=== PATIENT | male | born 1975 | race Hispanic/Latino ===

== ENCOUNTER 2018-11-11 19:28 | Inpatient (IN) | payer SELFPAY ==
[2018-11-11] MEDS ORDERED: Lidocaine 2% MPF 10 ML AMP (For Epidural Use) ONE (20:23)
[2018-11-11] MEDS ORDERED: Adacel (T-DAP) 0.5 ML SYRINGE ONE (21:19)
--- NOTE | 2018-11-11 21:24 | PDOC.FPRHP ---
- History of Present Illness Chief Complaint: Puncture wound History of Present Illness: 43 yo egyptian speaking M with PMH of DM and HTN presents with hx of 11 days ago puncturing rt forearm at his worksite ([facility]) with a wet steel han that was dirty. Pt went to clinic in [place] and was given amoxicillin. He developed fever of 100.5 yesterday, and went to [facility] to be seen today as his wound was worsening and becoming more painful. In the ED, he was febrile. He was given clinda, zosyn, and vanc as well as insulin and toradol. LA was 2.9. He was transferred to [facility]. Here he was afebrile. Repeat LA was improved. WBC was 11.7. He was given Tdap vaccine. Bedside sono showed abscess, wound was I&D at bedside, pus was drained - Allergies/Adverse Reactions Allergies Allergy/AdvReac Type Severity Reaction Status Date / Time No Known Drug Allergies Allergy Verified 11/11/18 23:46 - Home Medications Medication Instructions Recorded Confirmed Type metFORMIN [Glucophage] 500 mg PO BID- 11/12/18 11/12/18 History - History PMHx: DM, HTN, HLD PSHx: None FHx: DM in his mother Social: used to smoke cigars, 1/day for 7 years. Denies alcohol or drug use. He moved from [facility] a few years ago. - Review of Systems General: reports: fever/chills, weight/appetite/sleep changes (decreased appetite) Eyes: denies: eye pain, vision changes ENT: denies: nasal congestion, rhinorrhea Respiratory: reports: cough. denies: congestion, shortness of breath Cardiovascular: denies: chest pain, palpitation Gastrointestinal: reports: constipation. denies: nausea, vomiting, diarrhea, abdominal pain, GI bleeding Genitourinary: denies: dysuria, other (dysuria) Skin: reports: rashes, lesions Musculoskeletal: denies: pain, tenderness Neurological: reports: numbness (bilateral feet). denies: weakness Psychological: denies: anxiety, depression - Vital signs BP: [164/101] HR: [88] RR: [20] Tmax: [99.2] Pox: [97]% on [RA] Wt: [85.2 kg] - Physical Exam Constitutional: NAD, awake, alert and oriented HEENT: normocephalic and atraumatic, PERRLA, EOMI, MMM, oropharynx clear Neck: supple, no LAD Heart: RRR, normal S1/S2, no murmurs/rubs/gallops, pulses present, no edema Lungs: CTAB, no respiratory distress, no wheezing, no retractions Abdomen: soft, non-tender, bowel sounds present, no masses/distention Musculoskeletal: normal structure, normal tone, ROM grossly normal Neurological: no focal deficit, CN II-XII intact Skin: good turgor, capillary refill <2 seconds, other (Rt fore arm: erythematous , indurated. Incision draining small amount serosanguinous fluid) Psychiatric: normal mood and affect, good judgment and insight, intact recent and remote memory FMR H&P: Results - Labs Lab results: ESR Westergren 35 mm/hr (Less than 15) 11/11/18 20:51 Lactic Acid 2.0 mmol/L (0.5-2.2) 11/11/18 20:44 C-Reactive Protein 5.31 mg/dL (= or < 0.5) H 11/11/18 20:51 FMR H&P: A/P - Problem List (1) Cellulitis Current Visit: Yes Status: Acute Code(s): L03.90 - CELLULITIS, UNSPECIFIED (2) Abscess Current Visit: Yes Status: Acute Code(s): L02.91 - CUTANEOUS ABSCESS, UNSPECIFIED (3) HTN (hypertension) Current Visit: Yes Status: Chronic Code(s): I10 - ESSENTIAL (PRIMARY) HYPERTENSION (4) HLD (hyperlipidemia) Current Visit: Yes Status: Chronic Code(s): E78.5 - HYPERLIPIDEMIA, UNSPECIFIED (5) DM2 (diabetes mellitus, type 2) Current Visit: Yes Status: Chronic (6) Constipation Current Visit: Yes Status: Acute Code(s): K59.00 - CONSTIPATION, UNSPECIFIED - Plan Cellulitis with Abscess - Rt forearm, I&D at bedside 11/11 drained pus, no culture done. Given Morphine in ED - WBC elevated to 11.7. Afebrile here - Margins marked - Jose hook to decrease swelling - Continue Vanc, Zosyn, Clinda - Blood cx pending ([facility]), no wound culture drawn - s/p 2L fluids - Repeat LA improved - Procal neg - Tylenol/ BETTINA ibuprofen for pain CK mildly elevated - Likely 2/2 decreased PO intake Constipation - BETTINA miralax/colace HTN - Not on home medication, start lisinopril 5 mg daily here, monitor DM2 - Continue metformin BID, SSI HLD - Unknown home medication. Give 80 mg atorvastatin Dispo: admit to medical inpatient, LOS >2 midnights Diet: CC, low sodium DVT ppx: lovenox GI ppx: ranitidine PCP: none Code status: Full code Yobany Trevizo MD PGY-1 FMR H&P: Upper Level - Pertinent history 43 yo HM PMH Uncontrolled DM2 and HTN. Presents with 10 day history of worsening swelling in his right forearm. States started following an accident at work. 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 Was seen in urger care earlier this week and started on Amoxicillin. When pain and swelling worsened, went to [facility] for evaluation. Sent to [facility] for admission and IV antibiotics. ER [facility]: Labs, Van, zosyn, clinda, toradol. ER [facility]: I&D of wound, DTaP vaccine. - Pertinent findings Vitals: BP elevated. 164/101 otherwise WNL GEN: NAD CV: RRR, no murmur Pulm: CTA-B Extremity: marked erythema of posterior right forearm. incision present for I&D with small amount of blood draining. No involvement of hand. Neurovascularly intact. Labs: WBC 11.7. CRP 5.7 - Plan Date/Time: 11/11/182121 I, Igor Gregg MD, have evaluated this patient and agree with findings/plan as outlined by international marketing manager resident. Pertinent changes/additions are listed here. 1. Cellulitis and abscess of right forearm: s/p I&D. Wound not cultured in ER. Will continue Vanc, zosyn, and clinda until clinically improved. Area of erythema marked. Will monitor closely. 2. DM2: SSI. accuchecks, last A1c 14. Will start glyburide 3. HTN: Med rec. needs to be on RADHA or ARB and statin threrapy. 4. Diet: CC 5. PPx: SCD 6. CODE: Full Dispo: inpatient, medical, >[address] Muñiz.
[2018-11-11] MEDS ORDERED: Vancomycin HCl 1.25 GM in Sodium Chloride 0.9% 250 ML 250 ML IVPB SCH (22:30)
[2018-11-11] MEDS ORDERED: Morphine 4 MG/ML VIAL ONE (22:30)
--- NOTE | 2018-11-11 23:05 | PDOC.EVN ---
Event Note - Event Note Event Note: Date/Time: 11/11/18 2301 I personally evaluated the patient and discussed the management with Dr. Juan C Trevizo I agree with the History, Examination, Assessment and Plan documented above with any addition or exceptions noted below - 43 yo male with h/o uncontrolled DM, HTn, HLD presents with right arm pain, redness, swelling. Patient states that he sustained a puncture wound to right forearm 10 days ago while at work. Seen later in week at urgent care after he noticed some redness and was given amoxicillin and IM injection of abx. States that pain swelling continued to worsen and presented to ER today. (+) fever since yesterday. decreased appetite and body aches. PMH/PSH/All/Meds reviewed and agree with resident's documentation. T99.2 P80 RR18 BP146/100 Exam repeated by me and agree with residnet's findings. Labs: WBC=11.7, H/H=16.2/49.3, Zoi=324, Ug=081, K=4.2, Cl= 100, CO2=21, BUN/Cr=17/0.90, Brbp=186, Lactic Acid= 2.9 -> 2.0, CRP=5.31. A/P: 1 ) Right forearm cellulitus with abscess- I&D perfromed in ED by ERMD; no culture obtained. Plan for blood cultures. Continue Van/Zosyn/Clinda. Plan for TDaP if not already given. 2) DM- monitor accuchecks; adjust meds as needed. 3) HTN- continue home meds.
[2018-11-11] MEDS ORDERED: Ondansetron ODT 4 MG TAB PO PRN (23:08)
[2018-11-11] MEDS ORDERED: Dextrose 50% Abboject 50 ML SYRINGE SLOW IVP PRN (23:08)
[2018-11-11] MEDS ORDERED: Dextrose 5% in Water 1,000 ML IV PRN (23:08)
[2018-11-11] MEDS ORDERED: Acetaminophen 325 MG TAB PO PRN (23:08)
[2018-11-11] MEDS ORDERED: Famotidine 20 MG TAB PO SCH (23:15)
[2018-11-11] MEDS ORDERED: metFORMIN 500 MG TAB PO SCH (23:15)
[2018-11-11 23:18] VITALS: BMI 26.1
[2018-11-11] MEDS: Enoxaparin Sodium 40 MG/0.4 ML SYRINGE SC SCH (23:55)
[2018-11-11] MEDS ORDERED: Clindamycin/D5W 900 MG in Premix Bag 1 BAG IVPB SCH (23:59)
[2018-11-11] MEDS ORDERED: Piperacillin/Tazobactam 4.5 GM in Sodium Chloride 0.9% 100 ML IVPB SCH (23:59)
[2018-11-12] MEDS: Enoxaparin Sodium 40 MG/0.4 ML SYRINGE SC SCH ×2 (00:24→09:11)
[2018-11-12] MEDS ORDERED: Piperacillin/Tazobactam 3.375 GM in Sodium Chloride 0.9% 100 ML IVPB SCH ×2 (01:30→06:00)
[2018-11-12] MEDS ORDERED: Piperacillin/Tazobactam 4.5 GM in Sodium Chloride 0.9% 100 ML IVPB SCH (02:00)
[2018-11-12] MEDS ORDERED: Clindamycin/D5W 900 MG in Premix Bag 1 BAG IVPB SCH (02:00)
[2018-11-12] MEDS: Ibuprofen 800 MG TAB PO SCH ×4 (02:34→20:06)
[2018-11-12] MEDS: Clindamycin/D5W 900 MG in Premix Bag 1 BAG IVPB SCH ×3 (03:39→20:06)
--- NOTE | 2018-11-12 06:15 | PDOC.FM ---
- Subjective Subjective: Patient reports 4/10 pain this AM. Denies any fever/chills, N/V/D, chest pain of SOB. Says he feels better than when he first got to the hospital. - Objective MAR Reviewed: Yes Vital Signs & Weight: Vital Signs (12 hours) Temp Pulse Resp BP Pulse Ox 11/12/18 04:00 98.1 F 93 16 130/83 96 11/12/18 00:14 98 11/11/18 23:08 98.2 F 85 18 152/95 H 95 Weight Weight 82.554 kg Result Diagrams: 11/12/18 08:06 11/12/18 08:06 Phys Exam - Physical Examination Constitutional: NAD HEENT: moist MMs Neck: supple, full ROM Respiratory: no wheezing, no rales, no rhonchi, clear to auscultation bilateral Cardiovascular: RRR, no significant murmur Gastrointestinal: soft, positive bowel sounds Musculoskeletal: pulses present, edema present (in right forearm ) mild TTP in R dorsal forearm Neurological: non-focal, moves all 4 limbs Psychiatric: normal affect, A&O x 3 Skin: no rash, cap refill <2 seconds Deviation from normal: ~ 5x3 area of erythema on dorsal R forearm w/ a small punctate opening -: & minimal purulent & bloody discharge; fluctuance & induration noted Dx/Plan (1) Abscess Code(s): L02.91 - CUTANEOUS ABSCESS, UNSPECIFIED Status: Acute (2) Cellulitis Code(s): L03.90 - CELLULITIS, UNSPECIFIED Status: Acute (3) Constipation Code(s): K59.00 - CONSTIPATION, UNSPECIFIED Status: Acute (4) DM2 (diabetes mellitus, type 2) Status: Chronic (5) HLD (hyperlipidemia) Code(s): E78.5 - HYPERLIPIDEMIA, UNSPECIFIED Status: Chronic (6) HTN (hypertension) Code(s): I10 - ESSENTIAL (PRIMARY) HYPERTENSION Status: Chronic - Plan Plan: Cellulitis with Abscess - s/p I&D at bedside on 11/11 that drained pus but no culture done. Given Morphine in ED. - WBC elevated at 11.7 on admission & patient has remained HD stable & afebrile here. Will continue to trend WBC. - Margins marked on admission w/ no erythema progression noted on PE today. - Will continue chantal hook to decrease swelling. - Will continue Vanc, Zosyn, & Clinda pending blood cxs & will attempt to obtain a sample for wound cx today at bedside. - s/p 2L fluids. Will continue w/ PO hydration only as patient tolerating PO well. - Repeat LA improved - Procal neg - Tylenol/ BETTINA ibuprofen for pain/fever. - Will consider a bedside I&D to obtain a culture sample to guide abx therapy. CK mildly elevated - Likely 2/2 decreased PO intake. Will encourage aggressive PO hydration since tolerating PO and HD stable. HTN - Not on home medication, start lisinopril 5 mg daily here & monitor. DM2 - A1c 14.2 on 10/01/18 per chart review. - Continue metformin BID & mild SSI in addition to [facility] long-acting insulin for improved glycemic control, alison. in setting of an acute infection. HLD - Unknown home medication. Give 80 mg atorvastatin Constipation - [facility] miralax/colace. Dispo: admit to medical inpatient, LOS >2 midnights Diet: CC, low sodium DVT ppx: lovenox GI ppx: ranitidine PCP: none Code status: Full code
[2018-11-12 08:39] LABS: #Eosinphils 0.4 thou/uL (0.0-0.7); #Lymphocytes 1.9 thou/uL (1.20-3.40); #Monocytes 0.6 thou/uL (0.11-0.59); #Neutrophils 6.5 thou/uL (1.40-6.50); %Basophils 0.5 % (0.0-1.0); %Eosinophils 3.8 % (0.0-10.0); %Monocytes 6.4 % (0.0-10.0); %Neutrophils 69.3 % (42.0-75.0); Hemoglobin 15.5 g/dL (14.0-18.0); Mean Corpuscular HGB CONC 33.7 g/dL (32.0-36.0); Mean Corpuscular Hemoglobin 30.5 pg (27.0-31.0); Mean Corpuscular Volume 90.4 fL (78.0-98.0); Mean Platelet Volume 7.6 fL (7.4-10.4); Platelet Count 276 thou/uL (130-400); RBC Distribution Width 11.5 % (11.5-14.5); White Blood Cell (WBC) Count 9.5 thou/uL (4.8-10.8)
[2018-11-12 09:00] LABS: Anion Gap 13 mmol/L (10-20); BUN (Urea Nitrogen) 19 mg/dL (8.9-20.6); Calc. Creatinine Clearance 132 mL/min (70-130); Carbon Dioxide 23 mmol/L (22-29); Chloride 103 mmol/L (98-107); Estimated GFR-MDRD Greater than 90; Glucose 205 mg/dL (70-105); Potassium 4.1 mmol/L (3.5-5.1); Sodium 135 mmol/L (136-145)
[2018-11-12] MEDS ORDERED: Polyethylene Glycol 3350 17 GM Packet PO SCH (09:00)
[2018-11-12] MEDS ORDERED: Vancomycin HCl 1.25 GM in Sodium Chloride 0.9% 250 ML 250 ML IVPB SCH (09:00)
[2018-11-12] MEDS: Famotidine 20 MG TAB PO SCH ×2 (09:10→20:05)
[2018-11-12] MEDS: Senokot S 8.6-50 MG TAB PO SCH ×2 (09:10→20:02)
[2018-11-12] MEDS: metFORMIN 500 MG TAB PO SCH ×2 (09:11→16:30)
[2018-11-12] MEDS: Lisinopril 5 MG TAB PO SCH (09:11)
[2018-11-12] MEDS ORDERED: Lidocaine 1% (PF) 30 ML VIAL ONE (10:02)
[2018-11-12] MEDS ORDERED: Insulin Glargine 15 UNITS in Pre-Filled Syringe 1 EACH SC SCH (10:15)
[2018-11-12] MEDS ORDERED: Morphine 4 MG/ML VIAL ONE (11:20)
[2018-11-12] MEDS ORDERED: Morphine 2 MG/ML SYRINGE SLOW IVP SCH (11:30)
--- NOTE | 2018-11-12 11:38 | PRG ---
DATE OF SERVICE: 11/12/2018 SUBJECTIVE: Mr. Garcia came in with an abscess, infection, and cellulitis of his right forearm related to a work injury. This was incision and drainage and he is currently on IV antibiotics as well as a skyhook. Clinically, he has improved. We are asking Wound Care to do further debridement and irrigation of his wound and this is being performed as I speak. In the meantime, we will continue with IV antibiotics as well as skyhook for at least another day or two. We will continue to manage his diabetes as well. Job ID: [id number]
[2018-11-12] MEDS: HumaLOG 300 UNITS/3 ML VIAL SC PRN (16:31)
[2018-11-12] MEDS ORDERED: Polyethylene Glycol 3350 17 GM Packet PO PRN (16:39)
[2018-11-12] MEDS: Atorvastatin Calcium 40 MG TAB PO SCH (20:05)
[2018-11-12] MEDS ORDERED: Atorvastatin Calcium 40 MG TAB PO SCH (21:00)
--- NOTE | 2018-11-12 22:19 | CON ---
DATE OF CONSULTATION: REASON FOR CONSULT: Right arm cellulitis and abscess. HISTORY OF PRESENT ILLNESS: Mr. Garcia is a 43-year-old man with a past history of hypertension and diabetes, who presented to the hospital with a 1-1/2-week history of cellulitis to the right arm. He states that 1-1/2 ago, he was pinched on the right arm by some fletcher metal. He states that the skin was broken and that he doctored the area himself, but by Thursday, the arm was starting to get red and swollen. He states that by the time he came to the hospital yesterday, he was having fevers and there was some pus draining from the arm. He underwent an I and D at the bedside and was given a tetanus vaccine. He states that since then he is feeling better and having less pain in the arm. ALLERGIES: HE HAS NO KNOWN DRUG ALLERGIES. OUTPATIENT MEDICATIONS: Include metformin. The patient has been on atorvastatin, clindamycin, Lovenox, sliding scale insulin, lisinopril, metformin, docusate, and p.r.n. tramadol since admission. He was previously on Zosyn and vancomycin, but this has been discontinued. PAST MEDICAL HISTORY: Diabetes, hypertension, hyperlipidemia, and history of pancreatitis. PAST SURGICAL HISTORY: None. FAMILY HISTORY: Diabetes. SOCIAL HISTORY: The patient states that he used to drink and smoke, but quit doing both 6 or 7 years ago when he was diagnosed with pancreatitis. He denies any illicit drug use. He is Croatian-speaking only. REVIEW OF SYSTEMS: Ten-system review of systems is negative except per HPI. He has normal strength and movement in his hands. PHYSICAL EXAMINATION: VITAL SIGNS: The patient has been afebrile since his admission, heart rate 79, respirations 18, 97% saturated on room air, and blood pressure 123/79. GENERAL: Reveals a healthy-appearing man, in no acute distress. He is not flushed or toxic in appearance. He is not jaundiced or icteric. HEENT: Unremarkable. NECK: Supple without lymphadenopathy or thyroid nodules. HEART: Regular in its rate and rhythm without murmurs, rubs, or gallops. LUNGS: Clear to auscultation bilaterally. ABDOMEN: Soft, nontender, nondistended. EXTREMITIES: Warm and well perfused without significant edema. The right forearm has some mild edema and erythema. He has an I and D site, which is clean without expressible exudate and without any residual fluctuance. NEUROLOGIC: No focal deficits. PSYCHIATRIC: Alert, oriented, and appropriate, using a freelance translator. LABORATORY DATA: White count is 9.5, hematocrit 46, and platelets 276. Electrolytes are unremarkable. Glucoses ranged from 173 to 246. Preliminary cultures show moderate gram-positive cocci in pairs. ASSESSMENT: Right arm cellulitis and abscess. The abscess appears to have been adequately drained. I will follow him with the Wound Care Team. I have recommended continued elevation of his forearm and antibiotics as he has been receiving. Job ID: [id number]
[2018-11-13] MEDS: Ibuprofen 800 MG TAB PO SCH ×4 (03:28→21:47)
[2018-11-13] MEDS: Clindamycin/D5W 900 MG in Premix Bag 1 BAG IVPB SCH (04:27)
--- NOTE | 2018-11-13 06:37 | PDOC.FM ---
- Subjective Subjective: Patient reports that his pain has improved since yesterday. Rates it at a 3/10 on exam. Denies any N/V/D or constipation. Also denies any fever/chills, chest pain, or SOB. - Objective MAR Reviewed: Yes Vital Signs & Weight: Vital Signs (12 hours) Temp Pulse Resp BP Pulse Ox 11/13/18 04:00 98.2 F 75 16 130/84 98 11/12/18 20:00 98 11/12/18 19:00 98.3 F 86 16 117/79 99 Weight Weight 82.554 kg I&O: 11/11/18 11/12/18 11/13/18 06:59 06:59 06:59 Intake Total 720 Output Total 550 Balance 170 Result Diagrams: 11/12/18 08:06 11/13/18 07:11 Phys Exam - Physical Examination Constitutional: NAD HEENT: moist MMs Neck: supple, full ROM Respiratory: no wheezing, no rales, no rhonchi, clear to auscultation bilateral Cardiovascular: RRR, no significant murmur Gastrointestinal: soft, positive bowel sounds improved R forearm edema compared to yesterday Neurological: non-focal, moves all 4 limbs Psychiatric: normal affect, A&O x 3 Skin: no rash, normal turgor, cap refill <2 seconds Deviation from normal: ~3x4 area of erythema and warmth on R forearm; no erythema expansion -: minimal serosanguinous d/c noted on dressing; packing in place Dx/Plan (1) Abscess Code(s): L02.91 - CUTANEOUS ABSCESS, UNSPECIFIED Status: Acute (2) Cellulitis Code(s): L03.90 - CELLULITIS, UNSPECIFIED Status: Acute Qualifiers: Site of cellulitis: extremity Site of cellulitis of extremity: upper extremity Laterality: right Qualified Code(s): L03.113 - Cellulitis of right upper limb (3) Constipation Code(s): K59.00 - CONSTIPATION, UNSPECIFIED Status: Acute (4) DM2 (diabetes mellitus, type 2) Status: Chronic (5) HLD (hyperlipidemia) Code(s): E78.5 - HYPERLIPIDEMIA, UNSPECIFIED Status: Chronic (6) HTN (hypertension) Code(s): I10 - ESSENTIAL (PRIMARY) HYPERTENSION Status: Chronic - Plan Plan: Cellulitis with Abscess - s/p I&D x2, 1 in ER on 11/11 & second one yesterday at bedside w/ culture sample collected. Prelim Cx results show staph aureus. - WBC down to 9.5 yesterday AM. Repeat pending for this AM. Patient has remained HD stable & afebrile here. - Margins marked on admission w/ no erythema progression noted on PE. - Will continue chantal hook to decrease swelling & transition to PO clinda per Gen surg recs. - Will continue w/ PO hydration only as patient tolerating PO well. - Tylenol/ BETTINA ibuprofen & PRN tramadol for pain/fever. CK mildly elevated - Likely 2/2 decreased PO intake. Will encourage aggressive PO hydration since tolerating PO and HD stable. HTN - Will continue lisinopril 5 mg daily here & titrate PRN. DM2 - A1c 14.2 on 10/01/18 per chart review. - Will continue metformin BID & mild SSI in addition to BETTINA lantus for improved glycemic control, alison. in setting of an acute infection. Will increase AM lantus to 18 units since patient required an additional 3 units of SSI yesterday w/ 15U of lantus. HLD - Will continue 80 mg atorvastatin. Constipation, resolved - PRN miralax/colace. Dispo: Will consider transitioning to PO antibiotics today as patient has remained afebrile and leukocytosis has resovled since admission pending abscess culture results. Possible d/c tomorrow on PO abx once sensitivities have resulted. Diet: CC, HH low sodium DVT ppx: lovenox GI ppx: ranitidine PCP: none, will encourage f/u w/ [facility] or PCP within 1 week of d/c to monitor for continued resolution of infection & for DMII control. Code status: Full code Addendum - Attending - Attending Attestation Date/Time: 11/13/18 8488 I personally evaluated the patient and discussed the management with Dr. Sanchez. I agree with the History, Examination, Assessment and Plan documented above with any addition or exceptions noted below. Patient rates pain as 3/10. Will continue clindamycin but we are awaiting final sensitivities. Also increasing basal insulin.
[2018-11-13 07:46] LABS: Anion Gap 14 mmol/L (10-20); BUN (Urea Nitrogen) 18 mg/dL (8.9-20.6); Calc. Creatinine Clearance 136 mL/min (70-130); Calcium 9.4 mg/dL (7.8-10.44); Carbon Dioxide 24 mmol/L (22-29); Chloride 101 mmol/L (98-107); Estimated GFR-MDRD Greater than 90; Glucose 166 mg/dL (70-105); Sodium 135 mmol/L (136-145)
[2018-11-13] MEDS ORDERED: Insulin Glargine 15 UNITS in Pre-Filled Syringe 1 EACH SC SCH (09:00)
[2018-11-13] MEDS ORDERED: Insulin Glargine 18 UNITS in Pre-Filled Syringe 1 EACH SC SCH (09:00)
[2018-11-13] MEDS: metFORMIN 500 MG TAB PO SCH ×2 (09:33→16:00)
[2018-11-13] MEDS: Lisinopril 5 MG TAB PO SCH (09:34)
[2018-11-13] MEDS: Clindamycin 150 MG CAP PO SCH ×3 (09:34→21:47)
[2018-11-13] MEDS: Famotidine 20 MG TAB PO SCH ×2 (09:34→21:47)
[2018-11-13] MEDS: Enoxaparin Sodium 40 MG/0.4 ML SYRINGE SC SCH (09:35)
[2018-11-13] MEDS: Senokot S 8.6-50 MG TAB PO SCH ×2 (09:36→21:47)
[2018-11-13] MEDS: traMADol HCl 50 MG TAB PO PRN (10:09)
[2018-11-13] MEDS: HumaLOG 300 UNITS/3 ML VIAL SC PRN (12:35)
--- NOTE | 2018-11-13 16:15 | PDOC.GSPN ---
Surgery Progress Note: Subj - Subjective Narrative: Patient is feeling better. He feels like his arm is less swollen and he is having less pain. On examination the erythema and swelling to appear to have improved. I did not take down the entire dressing since wound care had already changed to today. She is growing staph aureus from his cultures although sensitivities are still pending. He is afebrile with normal vital signs. I have asked the patient and his nurse to have me called tomorrow for the dressing change when wound care comes by. Surgery Progress Note: Obj - Vital signs Vital signs: Vital Signs - Most Recent Temp Pulse Resp BP Pulse Ox 98.0 F 80 18 119/76 97 11/13/18 08:00 11/13/18 09:34 11/13/18 08:00 11/13/18 09:34 11/13/18 08:00 Surgery Progress Note: Results - Labs Result Diagrams: 11/12/18 08:06 11/13/18 07:11 Lab results: Laboratory Results - last 24 hr 11/13/18 11/13/18 11/13/18 04:58 07:11 11:02 Sodium 135 L Potassium 4.0 Chloride 101 Carbon Dioxide 24 Anion Gap 14 BUN 18 Creatinine 0.82 Estimated GFR (MDRD) Greater than 90 Glucose 166 H POC Glucose 187 H 227 H Calcium 9.4
[2018-11-13] MEDS: Atorvastatin Calcium 40 MG TAB PO SCH (21:47)
[2018-11-14] MEDS: Clindamycin 150 MG CAP PO SCH (04:24)
[2018-11-14] MEDS: Ibuprofen 800 MG TAB PO SCH ×3 (04:24→14:33)
[2018-11-14 07:23] VITALS: BP 132/88; TEMP 97.7
[2018-11-14 08:04] LABS: Anion Gap 13 mmol/L (10-20); BUN (Urea Nitrogen) 19 mg/dL (8.9-20.6); Calc. Creatinine Clearance 124 mL/min (70-130); Calcium 9.3 mg/dL (7.8-10.44); Carbon Dioxide 23 mmol/L (22-29); Chloride 101 mmol/L (98-107); Estimated GFR-MDRD Greater than 90; Glucose 145 mg/dL (70-105); Potassium 3.6 mmol/L (3.5-5.1); Sodium 133 mmol/L (136-145)
[2018-11-14] MEDS ORDERED: Insulin Glargine 20 UNITS in Pre-Filled Syringe 1 EACH SC SCH (09:00)
[2018-11-14] MEDS ORDERED: Sulfameth/Trimethoprim DS 800-160mg TAB PO SCH (09:00)
[2018-11-14] MEDS: Lisinopril 5 MG TAB PO SCH (09:59)
[2018-11-14] MEDS: Famotidine 20 MG TAB PO SCH (10:00)
[2018-11-14] MEDS: traMADol HCl 50 MG TAB PO PRN (10:00)
[2018-11-14] MEDS: metFORMIN 500 MG TAB PO SCH (10:04)
[2018-11-14] MEDS: Senokot S 8.6-50 MG TAB PO SCH (10:05)
[2018-11-14] MEDS: Enoxaparin Sodium 40 MG/0.4 ML SYRINGE SC SCH (10:05)
[2018-11-14] MEDS: HumaLOG 300 UNITS/3 ML VIAL SC PRN (13:01)
--- NOTE | 2018-11-14 21:40 | DIS ---
DATE OF ADMISSION: 11/11/2018 DATE OF DISCHARGE: 11/14/2018 RESIDENT: Chloe Sanchez MD ADMITTING ATTENDING: Rachael Muñiz MD DISCHARGE ATTENDING: Joselyn Rhoades MD CONSULT: General Surgery: Gage Richmond MD PRIMARY DIAGNOSIS: Purulent cellulitis of the right upper extremity. SECONDARY DIAGNOSES: 1. Poorly controlled type 2 diabetes mellitus. 2. Hyperlipidemia. 3. Hypertension. DISCHARGE MEDICATIONS: 1. Acetaminophen 650 mg p.o. q.4 hours p.r.n. for pain. 2. Atorvastatin 80 mg p.o. at bedtime. 3. Ibuprofen 800 mg p.o. every 6 hours p.r.n. for pain. 4. Lantus 20 units SQ q.a.m. 5. Lisinopril 5 mg p.o. daily. 6. Metformin 1000 mg p.o. b.i.d. with meals. 7. Tramadol 50 mg p.o. every 6 hours p.r.n. for pain #14. 8. Bactrim DS one tab p.o. b.i.d. #13. DISCONTINUED MEDICATIONS: Metformin 500 mg p.o. b.i.d. with meals. HOSPITAL COURSE: The patient is a 43-year-old gentleman with past medical history significant for poorly controlled type 2 diabetes mellitus and hypertension who presented to the emergency department with chief complaint of right arm pain secondary to an injury that occurred at work. The patient reported approximately 11 days ago, he punctured his right forearm at a work site with a wet, dirty steel han. He went to an Urgent Care clinic in [place], [place], and was given p.o. amoxicillin, which he completed as directed. However, the day prior to presentation, the patient reported developing fever at home and went to [place] ER for further evaluation. The patient was given IV clindamycin, Zosyn and vancomycin, as well as insulin and Toradol before being transferred to the [facility] for further evaluation. In the [facility] Department, the patient had additional blood work obtained which was significant for white blood cell count of 11.7, ESR of 35, and lactate of 2.9, which later downtrended to 2.0. The patient's blood glucose was also significantly elevated at 381 and his CRP was 5.31. In addition, a Tdap vaccine was administered and a bedside US revealed there was drainable fluid collection present. A bedside I & D was therefore performed and pus was drained; however, no culture was collected. Thus, due to the patient's systemic symptoms and failed outpatient treatment, he was admitted to the medical floor for continued IV antibiotics. The following morning, it was noted that the patient had remained afebrile and hemodynamically stable overnight. However, on physical exam, the wound still appeared to be fluctuant, so a second bedside I and D was performed during which a culture was obtained. The following day after receiving the preliminary culture results for gram-positive cocci in pairs, the patient's antibiotic regimen was deescalated from IV clindamycin, Zosyn, and vancomycin to IV clindamycin only, pending culture susceptibilities. The patient was continued on IV clindamycin for day 2 of hospitalization and by day 3 of hospitalization, he was transitioned to p.o. clindamycin while still awaiting culture susceptibilities. Of note, the patient 's wound cultured at this point in time was positive for Staphylococcus aureus. By the date of discharge, the patient's culture susceptibilities revealed that the patient had been infected with methicillin-resistant Staphylococcus aureus that was susceptible to lindamycin, Bactrim, and doxycycline. The patient was therefore transitioned from p.o. clindamycin to p.o. Bactrim to ensure compliance due to less frequent dosing. Prior to discharge, Wound Care was consulted to instruct the patient on home wound care and it was recommended that the patient follow-up with his primary care physician at [facility] in [place] early next week to ensure continued resolution of his infection. Regarding the patient's poorly-controlled type 2 diabetes mellitus, per chart review, it was noted that the patient's hemoglobin A1c was approximately 14.2 about 1 month prior to admission. He was therefore started on metformin at an increased dose of 1000 mg p.o. b.i.d., as well as scheduled long-acting insulin that was titrated up to 18 units q.a.m. by the date of discharge. The patient was counseled on the importance of diabetes control and prevention of getting more serious infections and endorsed understanding. Close follow-up for diabetes control was also recommended. Regarding the patient's lab abnormalities, his white blood cell count was within normal limits by the date of discharge and his blood glucose level was consistently in the 100s, signaling improved glycemic control. DISPOSITION: Stable. DISCHARGE INSTRUCTIONS: 1. Location: Home. 2. Diet: Consistent carb, heart healthy diet. 3. Activity: Activity as tolerated. No restrictions. 4. Follow-up: The patient was discharged to follow-up with his primary care physician, Dr. Sally Oakes, within 3 days of discharge. The patient was also instructed to follow-up with General Surgery, Dr. Gage Richmond, within 1 week of discharge. Job ID: [id number] [facility]
--- NOTE | 2018-11-15 09:52 | OP ---
DATE OF PROCEDURE: 11/12/2018 PREOPERATIVE DIAGNOSIS: Purulent cellulitis with abscess formation. POSTOPERATIVE DIAGNOSIS: Purulent cellulitis with abscess formation. PROCEDURE: Incision and drainage of abscesses. PERFORMING PHYSICIANS: Chloe Sanchez MD; Pinky Martell MD. SUPERVISING PHYSICIAN: Donaldo Sanderson MD DESCRIPTION OF PROCEDURE: A time-out protocol was performed prior to initiating the procedure. The area was prepped in the usual sterile manner. The site was anesthetized with 1% lidocaine with epinephrine. A linear incision just adjacent to the previous incision site along the local skin lines was made and bloody purulent material was expressed. The abscess was explored thoroughly and sequestered pockets were opened. A culture sample was obtained and sent for isolation. Bleeding was minimal. The wound was then packed with iodoform gauze and dressed in the usual fashion. The patient tolerated the procedure well without complications. Job ID: [id number] [facility]
== END 2018-11-14 14:44 | disposition home or self-care (01) | DRG 603 ==
LOC: ERS 19:28 → OBSVTOIN 20:30 → T4-A 20:30 → 2NO 23:29 → T4-A 23:40
PROVIDERS: ADMIT Family Medicine; ATTEND Family Medicine
PROC: 0H9BXZZ Drainage of Right Upper Arm Skin, External Approach (ICD-10-PCS; principal; 2018-11-12)
DX: L03.113 Cellulitis of right upper limb (principal); L02.413 Cutaneous abscess of right upper limb; I10 Essential (primary) hypertension; E78.5 Hyperlipidemia, unspecified; E11.65 Type 2 diabetes mellitus with hyperglycemia; K59.00 Constipation, unspecified; F17.210 Nicotine dependence, cigarettes, uncomplicated; Z79.4 Long term (current) use of insulin
CPT/HCPCS: 10061; 36415; 36416; 80048; 82550; 83605; 84145; 85025; 85652; 86140; 87070; 87077; 87186; 87205; 90471; 90715; 96374; J1650; J1825; J2001; J2270; J2543; J3370; J3490; J7050

== ENCOUNTER 2019-12-28 17:53 | Inpatient (IN) | payer SELFPAY ==
[2019-12-28] MEDS ORDERED: Morphine 4 MG/ML VIAL SLOW IVP PRN (20:29)
[2019-12-28] MEDS ORDERED: Ondansetron ODT 4 MG TAB SL PRN (20:30)
[2019-12-28] MEDS: Ondansetron PF 4 MG/2 ML Vial IVP PRN (20:48)
[2019-12-28] MEDS: Lactated Ringer's 1,000 ML IV SCH (20:48)
[2019-12-28] MEDS ORDERED: Dextrose 50% Abboject 50 ML SYRINGE SLOW IVP PRN (22:26)
[2019-12-28] MEDS ORDERED: Dextrose 5% in Water 1,000 ML IV PRN (22:26)
[2019-12-28] MEDS ORDERED: Sodium Chloride 0.9% 1,000 ML IV SCH (22:30)
[2019-12-28 22:39] VITALS: BMI 28.5
[2019-12-28] MEDS: Morphine 2 MG/ML SYRINGE SLOW IVP PRN (23:05)
--- NOTE | 2019-12-29 01:25 | HP ---
CHIEF COMPLAINT: Abdominal pain. HISTORY OF PRESENT ILLNESS: This patient is a 44-year-old male with a history of pancreatitis with recurrence. The patient reports his last episode was about 3 years ago. Following that, he has been on some pancreatic supplementation enzymes, although he had discontinued those. Today about 11 o'clock, the patient started experiencing pain which was more in the right abdomen and appeared to be more in the right lower quadrant, although he admittedly has dull epigastric pain that has some radiation to that area. He had associated nausea and some retching, but no actual vomiting. He denies any diarrhea, constipation, or anorexia. Denies any fevers or chills. He is unaware specifically of the source of his pancreatitis, although he was told in the past that it might be related to metformin. REVIEW OF SYSTEMS: All other systems reviewed. All pertinent positives and negatives noted in the history of present illness. All other systems reviewed were negative. PAST MEDICAL HISTORY: Notable for diabetes, hypertension, recurrent pancreatitis, hyperlipidemia. PAST SURGICAL HISTORY: Appendectomy for ruptured appendix, which appears to be an open procedure based on the subumbilical scar. FAMILY HISTORY: Mother had diabetes, hypertension. SOCIAL HISTORY: The patient denies alcohol or tobacco. He did have some history of that previously, but does not describe significant abuse. He is full code and his would be his surrogate decision maker. ALLERGIES: NONE. CURRENT MEDICATIONS: 1. Aspirin 81 mg daily. 2. Atorvastatin 40 mg two p.o. at bedtime. 3. Gabapentin 100 mg three tabs p.o. b.i.d. 4. Glipizide 5 mg 2 tablets b.i.d. 5. Metformin 500 mg 2 tablets b.i.d. 6. Gemfibrozil 600 mg one p.o. daily. 7. MiraLAX 17 g daily. PHYSICAL EXAMINATION: VITAL SIGNS: BP 133/93, pulse 96, respirations 18, temperature 98.3, O2 saturation 98% on room air. GENERAL APPEARANCE: Age-appropriate healthy-appearing male, in no acute distress. He is [place]-speaking only. He was interviewed through position american sign language interpreter. He is awake and alert, pleasant and cooperative. HEENT: PERRL. No OP lesions. Maynard moist mucosa. NECK: Supple and symmetric without lymphadenopathy, JVD, or carotid bruits. HEART: Regular rate and rhythm without murmurs, gallops, or rubs. LUNGS: Clear to auscultation bilaterally with good chest wall expansion and air exchange. ABDOMEN: Soft, nondistended. He does have some mild tenderness to palpation across the upper abdomen and also some in the right lower quadrant, has no guarding and no rebound. No masses are palpable. No hepatosplenomegaly. EXTREMITIES: No cyanosis, clubbing, or edema. His peripheral pulses are slightly diminished, but present. PSYCH: Normal affect and behavior. NEURO: Cranial nerves are cognitively intact. There is no peripheral weakness or focal deficits. LABORATORY DATA: White count 7.3, hemoglobin 16, platelets 189. Sodium 127, potassium 4.0, chloride 92, CO2 is 21, BUN 15, creatinine is 1.17, glucose is 437, calcium 8.9, AST 29, ALT 49, alkaline phosphatase 120. Troponin is less than 0.01. BNP less than 10. Albumin 4, globulin 3.8. Lipase is 1623. Chest x-ray is negative. CT of the abdomen shows some evidence for acute pancreatitis based on inflammatory changes of the head and uncinate process of the pancreas. Duodenitis was also potential consideration. IMPRESSION AND PLAN: 1. Acute pancreatitis, recurrent in a patient with a history of recurrent pancreatitis, etiology is not known. The patient did report that he had some alcohol use in the past but quit one year ago, did not describe any significant alcohol abuse. He has been told in the past, likely related to metformin. We will treat currently with IV fluids, pain medications and keep him n.p.o. other than some ice chips. Will obtain a lipid panel in the morning to see if he has severe hypertriglyceridemia. If negative, some consideration could be given to ultrasound of the gallbladder, although CT scan did not reveal any significant findings there. His liver enzymes and bilirubin appear to be fairly normal. 2. Pseudohyponatremia secondary to hyperglycemia. 3. Severe hyperglycemia and type 2 diabetes. The patient will have sliding scale insulin low dose initially because he will be n.p.o., although his blood sugars are running fairly high right now that may need to be adjusted. Keep him off his p.o. oral hypoglycemic agents for now. 4. History of hyperlipidemia. Again, checking a fasting lipid panel. Resume statin once he is able to take p.o. 5. History of hypertension. We will follow up blood pressures and give p.r.n. if that becomes necessary based on the fact that he will not be getting his p.o. medications. 6. Pain management with p.r.n. IV morphine. Job ID: [id number]
[2019-12-29] MEDS: Lactated Ringer's 1,000 ML IV SCH ×5 (02:25→17:02)
[2019-12-29] MEDS: Ondansetron PF 4 MG/2 ML Vial IVP PRN (02:30)
[2019-12-29] MEDS: Morphine 2 MG/ML SYRINGE SLOW IVP PRN ×2 (02:30→08:20)
[2019-12-29 06:41] LABS: Anion Gap 14 mmol/L (10-20); BUN (Urea Nitrogen) 14 mg/dL (8.9-20.6); Calc. Creatinine Clearance 115 mL/min (70-130); Calcium 8.6 mg/dL (7.8-10.44); Carbon Dioxide 25 mmol/L (22-29); Cardiac Risk 15.1 (Less than 4.5); Chloride 99 mmol/L (98-107); Cholesterol 424 mg/dl (< 200 Desired); Estimated GFR-MDRD 85; Glucose 265 mg/dL (70-105); HDL Cholesterol 28 mg/dL (>60 Neg Risk); Lipase 375 U/L (8-78); Potassium 4.8 mmol/L (3.5-5.1); Sodium 133 mmol/L (136-145)
[2019-12-29 06:49] LABS: Triglycerides 1534 mg/dL (Less than 150)
[2019-12-29] MEDS: Fish Oil 1,000 MG CAP PO SCH (08:20)
[2019-12-29] MEDS: Enoxaparin Sodium 40 MG/0.4 ML SYRINGE SC SCH (08:21)
[2019-12-29] MEDS: Pantoprazole 40 MG VIAL IVP SCH (08:21)
[2019-12-29] MEDS: Fenofibrate 48 MG TAB PO SCH (09:32)
[2019-12-29] MEDS: Insulin Glargine 10 UNITS in Pre-Filled Syringe 1 EACH SC SCH ×2 (09:32→21:47)
[2019-12-29] MEDS: HumaLOG 300 UNITS/3 ML VIAL SC PRN ×2 (11:34→17:03)
--- NOTE | 2019-12-29 13:07 | PDOC.HOSPP ---
- Subjective Encounter Date: 12/29/19 Encounter Time: 11:30 Subjective: abd pain is better, no nausea or vomiting - Objective Vital Signs & Weight: Vital Signs (12 hours) Temp Pulse Resp BP Pulse Ox 12/29/19 08:20 96 12/29/19 07:34 98.7 F 114 H 18 121/73 96 12/29/19 06:00 98.4 F 107 H 18 115/68 97 12/29/19 03:14 96 Weight Weight 182 lb 4.8 oz I&O: 12/28/19 12/29/19 12/30/19 06:59 06:59 06:59 Intake Total 876 Output Total 1600 Balance -724 Result Diagrams: 12/29/19 06:04 Additional Labs: Accuchecks 12/29/19 12/29/19 12/28/19 10:57 01:36 20:17 POC Glucose 223 H 271 H 270 H 12/28/19 18:56 POC Glucose 263 H Hospitalist ROS - Medication Medications: Active Medications Generic Name Dose Route Start Last Admin Trade Name Freq PRN Reason Stop Dose Admin Enoxaparin Sodium 40 mg 12/29/19 09:00 12/29/19 08:21 Lovenox SC 40 mg 0900 BETTINA Administration Fenofibrate 48 mg 12/29/19 09:00 12/29/19 09:32 Tricor PO 48 mg DAILY BETTINA Administration Fish Oil 1,000 mg 12/29/19 09:00 12/29/19 08:20 Fish Oil PO 1,000 mg DAILY BETTINA Administration Insulin Glargine 10 units/ 0.1 mls @ 0 mls/hr 12/29/19 09:00 12/29/19 09:32 Miscellaneous Medication SC 0.1 mls BID BETTINA Administration Lactated Ringer's 1,000 mls @ 200 mls/hr 12/29/19 07:30 12/29/19 11:34 Lactated Ringer's IV 1,000 mls .Q5H BETTINA Administration Insulin Human Lispro 0 units 12/28/19 22:26 12/29/19 11:34 Humalog SC 3 unit .MILD SLIDING SCALE PRN Administration Mild Correctional Scale Morphine Sulfate 2 mg 12/28/19 22:26 12/29/19 08:20 Morphine SLOW IVP 2 mg Q4H PRN Administration Moderate to Severe Pain (6-10) Pantoprazole Sodium 40 mg 12/29/19 09:00 12/29/19 08:21 Protonix IVP 40 mg DAILY BETTINA Administration Sodium Chloride 10 ml 12/28/19 21:00 12/29/19 10:09 Flush - Normal Saline IVF Not Given Q12HR BETTINA - Exam General Appearance: awake alert Eye: PERRL, anicteric sclera ENT: no oropharyngeal lesions, dry oral mucosa Neck: supple, no JVD Heart: RRR, no murmur Respiratory: no wheezes, no rales Gastrointestinal: soft, non-distended, normal bowel sounds, no guarding, no rigidity Extremities: no cyanosis, no edema Neurological: cranial nerve grossly intact, no focal deficits Psychiatric: normal affect, A&O x 3 Hosp A/P (1) Acute pancreatitis Code(s): K85.90 - ACUTE PANCREATITIS WITHOUT NECROSIS OR INFECTION, UNSP Status: Acute Qualifiers: Pancreatitis type: other Acute pancreatitis complication: no infection or necrosis Qualified Code(s): K85.80 - Other acute pancreatitis without necrosis or infection (2) DM2 (diabetes mellitus, type 2) Status: Chronic Qualifiers: Diabetes mellitus intermission coordinator insulin use: without custodial use (3) HLD (hyperlipidemia) Code(s): E78.5 - HYPERLIPIDEMIA, UNSPECIFIED Status: Chronic Qualifiers: Hyperlipidemia type: mixed hyperlipidemia Qualified Code(s): E78.2 - Mixed hyperlipidemia (4) HTN (hypertension) Code(s): I10 - ESSENTIAL (PRIMARY) HYPERTENSION Status: Chronic Qualifiers: Hypertension type: essential hypertension Qualified Code(s): I10 - Essential (primary) hypertension - Plan continue aggressive hydration ac pancreatitis sec to hypertriglyceridemia full liq diet start on tricor, fish oil, crestor will add creon when he starts solid diet hemostable explained all the labs and current plan with citizen of [place] translation
[2019-12-29] MEDS: Acetaminophen 325 MG TAB PO PRN (17:02)
[2019-12-29] MEDS: Rosuvastatin 20 MG TAB PO SCH (21:47)
[2019-12-30] MEDS: Lactated Ringer's 1,000 ML IV SCH ×6 (00:15→20:38)
[2019-12-30 06:40] LABS: #Eosinphils 0.2 thou/uL (0.0-0.7); #Lymphocytes 1.5 thou/uL (1.20-3.40); #Monocytes 0.9 thou/uL (0.11-0.59); #Neutrophils 8.8 thou/uL (1.40-6.50); %Basophils 0.4 % (0.0-1.0); %Eosinophils 1.8 % (0.0-10.0); %Lymphocytes 12.9 % (21.0-51.0); %Monocytes 7.5 % (0.0-10.0); %Neutrophils 77.4 % (42.0-75.0); Hemoglobin 14.9 g/dL (14.0-18.0); Mean Corpuscular HGB CONC 33.7 g/dL (32.0-36.0); Mean Corpuscular Hemoglobin 30.5 pg (27.0-31.0); Mean Corpuscular Volume 90.6 fL (78.0-98.0); Mean Platelet Volume 9.3 fL (7.4-10.4); Platelet Count 172 thou/uL (130-400); RBC Distribution Width 11.9 % (11.5-14.5); Red Blood Cell (RBC) Count 4.87 mill/uL (4.70-6.10); White Blood Cell (WBC) Count 11.4 thou/uL (4.8-10.8)
[2019-12-30 07:01] LABS: ALT (SGPT) 29 U/L (8-55); AST (SGOT) 19 U/L (5-34); Albumin 3.5 g/dL (3.5-5.0); Alkaline Phosphatase 63 U/L (40-110); Anion Gap 12 mmol/L (10-20); BUN (Urea Nitrogen) 8 mg/dL (8.9-20.6); Bilirubin, Total 0.9 mg/dL (0.2-1.2); Calc. Creatinine Clearance 138 mL/min (70-130); Calcium 8.3 mg/dL (7.8-10.44); Carbon Dioxide 26 mmol/L (22-29); Chloride 101 mmol/L (98-107); Estimated GFR-MDRD Greater than 90; Globulin 2.5 g/dL (2.4-3.5); Glucose 189 mg/dL (70-105); Potassium 4.4 mmol/L (3.5-5.1); Sodium 135 mmol/L (136-145)
[2019-12-30] MEDS: Fish Oil 1,000 MG CAP PO SCH (09:21)
[2019-12-30] MEDS: Gabapentin 300 MG CAP PO SCH ×2 (09:21→20:39)
[2019-12-30] MEDS: Pantoprazole 40 MG VIAL IVP SCH (09:21)
[2019-12-30] MEDS: Aspirin Chewable 81 MG TAB PO SCH (09:21)
[2019-12-30] MEDS: Enoxaparin Sodium 40 MG/0.4 ML SYRINGE SC SCH (09:21)
[2019-12-30] MEDS: Insulin Glargine 10 UNITS in Pre-Filled Syringe 1 EACH SC SCH ×2 (09:21→20:39)
[2019-12-30] MEDS: Fenofibrate 48 MG TAB PO SCH (09:21)
--- NOTE | 2019-12-30 10:54 | PDOC.HOSPP ---
- Subjective Encounter Date: 12/30/19 Encounter Time: 07:40 Subjective: has ruq pain but better this am, no nausea is tolerating full liq diet c/o burning urination - Objective Vital Signs & Weight: Vital Signs (12 hours) Temp Pulse Resp BP BP Pulse Ox 12/30/19 07:16 99.3 F 109 H 20 137/83 97 12/30/19 04:00 99.8 F H 110 H 18 132/83 96 12/30/19 00:00 100.2 F H 108 H 18 114/68 96 Weight Weight 182 lb 4.8 oz I&O: 12/29/19 12/30/19 12/31/19 06:59 06:59 06:59 Intake Total 876 3200 Output Total 1600 3600 Balance -724 -400 Result Diagrams: 12/30/19 06:12 12/30/19 06:12 Additional Labs: Accuchecks 12/30/19 12/29/19 12/29/19 04:23 20:07 16:28 POC Glucose 201 H 267 H 214 H 12/29/19 10:57 POC Glucose 223 H Hospitalist ROS - Medication Medications: Active Medications Generic Name Dose Route Start Last Admin Trade Name Freq PRN Reason Stop Dose Admin Acetaminophen 650 mg 12/29/19 16:38 12/29/19 17:02 Tylenol PO 650 mg Q6H PRN Administration fever or mild pain Aspirin 81 mg 12/30/19 09:00 12/30/19 09:21 Aspirin Chewable PO 81 mg DAILY BETTINA Administration Enoxaparin Sodium 40 mg 12/29/19 09:00 12/30/19 09:21 Lovenox SC 40 mg 0900 BETTINA Administration Fenofibrate 48 mg 12/29/19 09:00 12/30/19 09:21 Tricor PO 48 mg DAILY BETTINA Administration Fish Oil 1,000 mg 12/29/19 09:00 12/30/19 09:21 Fish Oil PO 1,000 mg DAILY BETTINA Administration Gabapentin 300 mg 12/30/19 09:00 12/30/19 09:21 Neurontin PO 300 mg BID BETTINA Administration Insulin Glargine 10 units/ 0.1 mls @ 0 mls/hr 12/29/19 09:00 12/30/19 09:21 Miscellaneous Medication SC 0.1 mls BID BETTINA Administration Lactated Ringer's 1,000 mls @ 200 mls/hr 12/29/19 07:30 12/30/19 09:20 Lactated Ringer's IV 1,000 mls .Q5H BETTINA Administration Insulin Human Lispro 0 units 12/28/19 22:26 12/29/19 17:03 Humalog SC 3 unit .MILD SLIDING SCALE PRN Administration Mild Correctional Scale Morphine Sulfate 2 mg 12/28/19 22:26 12/29/19 08:20 Morphine SLOW IVP 2 mg Q4H PRN Administration Moderate to Severe Pain (6-10) Pantoprazole Sodium 40 mg 12/29/19 09:00 12/30/19 09:21 Protonix IVP 40 mg DAILY BETTINA Administration Rosuvastatin Calcium 20 mg 12/29/19 21:00 12/29/19 21:47 Crestor PO 20 mg HS BETTINA Administration Sodium Chloride 10 ml 12/28/19 21:00 12/30/19 09:22 Flush - Normal Saline IVF Not Given Q12HR BETTINA - Exam General Appearance: awake alert Eye: PERRL, anicteric sclera ENT: no oropharyngeal lesions, moist mucosa Neck: supple, no JVD Heart: RRR, no murmur Respiratory: no wheezes, no rales Gastrointestinal: soft, non-distended, normal bowel sounds, no guarding, no rigidity Extremities: no cyanosis, no edema Neurological: cranial nerve grossly intact, no focal deficits Psychiatric: normal affect, A&O x 3 Hosp A/P (1) Acute pancreatitis Code(s): K85.90 - ACUTE PANCREATITIS WITHOUT NECROSIS OR INFECTION, UNSP Status: Acute Qualifiers: Pancreatitis type: other Acute pancreatitis complication: no infection or necrosis Qualified Code(s): K85.80 - Other acute pancreatitis without necrosis or infection (2) DM2 (diabetes mellitus, type 2) Status: Chronic Qualifiers: Diabetes mellitus rn long term care insulin use: without halfway use (3) HLD (hyperlipidemia) Code(s): E78.5 - HYPERLIPIDEMIA, UNSPECIFIED Status: Chronic Qualifiers: Hyperlipidemia type: mixed hyperlipidemia Qualified Code(s): E78.2 - Mixed hyperlipidemia (4) HTN (hypertension) Code(s): I10 - ESSENTIAL (PRIMARY) HYPERTENSION Status: Chronic Qualifiers: Hypertension type: essential hypertension Qualified Code(s): I10 - Essential (primary) hypertension - Plan continue aggressive hydration ac pancreatitis sec to hypertriglyceridemia full liq fat free diet, will adv to fat free solid diet in am dietary consultation usg ruq to r/o cholelithiasis/cholecystitis in view of ruq pain x 3 days which is easing now, LFT's are normal. on tricor, fish oil, crestor will add creon when he starts solid diet in am. hemostable to ambulate in hallway as tolerated
[2019-12-30] MEDS: HumaLOG 300 UNITS/3 ML VIAL SC PRN ×2 (13:00→17:52)
--- NOTE | 2019-12-30 16:48 | ULT ---
ULTRASOUND ABDOMEN LIMITED: (RIGHT UPPER QUADRANT) 12/30/19 HISTORY: 44-year-old male with acute pancreatitis. Evaluate for cholelithiasis as a cause. FINDINGS: Gallbladder: Distended. Normal wall thickness. No pericholecystic fluid. Questionable sludge present. There is a tiny, approximately 0.9 x 0.7 x 0.7 cm echogenic nodule in the body of the gallbladder travon men abutting the gallbladder wall without acoustic shadowing. It is apparently immobile. No other int raluminal echogenic foci are visualized. Common duct: 6 mm. Liver: Diffusely increased echogenicity. Enlarged. Pancreas: Mostly obscured by shadowing from bowel gas. Right kidney: No hydronephrosis. IMPRESSION: 1. Distended gallbladder. 2. Small 9 mm echogenic focus in the gallbladder lumen, favored to be gallbladder polyp rather t shukla gallstone. 3. Hepatic steatosis. 4. Hepatomegaly. GERMANIA [place] POS: JIN
[2019-12-30] MEDS: Rosuvastatin 20 MG TAB PO SCH (20:39)
[2019-12-31] MEDS: Lactated Ringer's 1,000 ML IV SCH ×3 (04:35→13:02)
[2019-12-31] MEDS: Fish Oil 1,000 MG CAP PO SCH (08:17)
[2019-12-31] MEDS: Fenofibrate 48 MG TAB PO SCH (08:17)
[2019-12-31] MEDS: Pantoprazole 40 MG VIAL IVP SCH (08:17)
[2019-12-31] MEDS: Gabapentin 300 MG CAP PO SCH ×2 (08:17→21:28)
[2019-12-31] MEDS: Aspirin Chewable 81 MG TAB PO SCH (08:17)
[2019-12-31] MEDS: Enoxaparin Sodium 40 MG/0.4 ML SYRINGE SC SCH (08:17)
[2019-12-31] MEDS: Insulin Glargine 10 UNITS in Pre-Filled Syringe 1 EACH SC SCH (08:18)
[2019-12-31 09:46] LABS: ALT (SGPT) 27 U/L (8-55); AST (SGOT) 21 U/L (5-34); Albumin 3.4 g/dL (3.5-5.0); Alkaline Phosphatase 60 U/L (40-110); Anion Gap 10 mmol/L (10-20); BUN (Urea Nitrogen) 7 mg/dL (8.9-20.6); Bilirubin, Total 0.6 mg/dL (0.2-1.2); Calc. Creatinine Clearance 141 mL/min (70-130); Calcium 8.8 mg/dL (7.8-10.44); Carbon Dioxide 27 mmol/L (22-29); Chloride 101 mmol/L (98-107); Estimated GFR-MDRD Greater than 90; Globulin 3.2 g/dL (2.4-3.5); Glucose 217 mg/dL (70-105); Protein, Total 6.6 g/dL (6.0-8.3); Sodium 134 mmol/L (136-145)
--- NOTE | 2019-12-31 11:36 | PDOC.HOSPP ---
- Subjective Encounter Date: 12/31/19 Encounter Time: 08:50 Subjective: abd pain is slowly resolving is tolerating liq diet had bm yesterday - Objective Vital Signs & Weight: Vital Signs (12 hours) Temp Pulse Resp BP Pulse Ox 12/31/19 09:23 98 12/31/19 07:33 98.6 F 92 18 128/81 98 Weight Weight 182 lb 4.8 oz I&O: 12/30/19 12/31/19 01/01/20 06:59 06:59 06:59 Intake Total 3200 Output Total 3600 Balance -400 Result Diagrams: 12/30/19 06:12 12/31/19 08:38 Additional Labs: Accuchecks 12/31/19 12/30/19 12/30/19 04:18 19:29 17:12 POC Glucose 159 H 226 H 212 H 12/30/19 11:17 POC Glucose 231 H Hospitalist ROS - Medication Medications: Active Medications Generic Name Dose Route Start Last Admin Trade Name Freq PRN Reason Stop Dose Admin Acetaminophen 650 mg 12/29/19 16:38 12/29/19 17:02 Tylenol PO 650 mg Q6H PRN Administration fever or mild pain Aspirin 81 mg 12/30/19 09:00 12/31/19 08:17 Aspirin Chewable PO 81 mg DAILY BETTINA Administration Enoxaparin Sodium 40 mg 12/29/19 09:00 12/31/19 08:17 Lovenox SC 40 mg 0900 BETTINA Administration Fenofibrate 48 mg 12/29/19 09:00 12/31/19 08:17 Tricor PO 48 mg DAILY BETTINA Administration Fish Oil 1,000 mg 12/29/19 09:00 12/31/19 08:17 Fish Oil PO 1,000 mg DAILY BETTINA Administration Gabapentin 300 mg 12/30/19 09:00 12/31/19 08:17 Neurontin PO 300 mg BID BETTINA Administration Insulin Human Lispro 0 units 12/28/19 22:26 12/30/19 17:52 Humalog SC 3 unit .MILD SLIDING SCALE PRN Administration Mild Correctional Scale Morphine Sulfate 2 mg 12/28/19 22:26 12/29/19 08:20 Morphine SLOW IVP 2 mg Q4H PRN Administration Moderate to Severe Pain (6-10) Pantoprazole Sodium 40 mg 12/29/19 09:00 12/31/19 08:17 Protonix IVP 40 mg DAILY BETTINA Administration Rosuvastatin Calcium 20 mg 12/29/19 21:00 12/30/19 20:39 Crestor PO 20 mg HS BETTINA Administration Sodium Chloride 10 ml 12/28/19 21:00 12/31/19 08:29 Flush - Normal Saline IVF Not Given Q12HR BETTINA - Exam General Appearance: awake alert Eye: PERRL, anicteric sclera ENT: no oropharyngeal lesions, moist mucosa Neck: supple, no JVD Heart: RRR, no murmur Respiratory: no wheezes, no rales Gastrointestinal: soft, non-distended, normal bowel sounds, no guarding, no rigidity Extremities: no cyanosis, no edema Neurological: cranial nerve grossly intact, no focal deficits Psychiatric: normal affect, A&O x 3 Hosp A/P (1) Acute pancreatitis Code(s): K85.90 - ACUTE PANCREATITIS WITHOUT NECROSIS OR INFECTION, UNSP Status: Acute Qualifiers: Pancreatitis type: other Acute pancreatitis complication: no infection or necrosis Qualified Code(s): K85.80 - Other acute pancreatitis without necrosis or infection (2) DM2 (diabetes mellitus, type 2) Status: Chronic Qualifiers: Diabetes mellitus intermediate insulin use: without ad terminal makeup operator use (3) HLD (hyperlipidemia) Code(s): E78.5 - HYPERLIPIDEMIA, UNSPECIFIED Status: Chronic Qualifiers: Hyperlipidemia type: mixed hyperlipidemia Qualified Code(s): E78.2 - Mixed hyperlipidemia (4) HTN (hypertension) Code(s): I10 - ESSENTIAL (PRIMARY) HYPERTENSION Status: Chronic Qualifiers: Hypertension type: essential hypertension Qualified Code(s): I10 - Essential (primary) hypertension - Plan ac pancreatitis sec to hypertriglyceridemia solid fat free diet dietary consultation usg ruq shows no evidence of stones or cholecystitis, LFT's are normal. on tricor, fish oil, crestor, creon, metformin and glipizide. hemostable to ambulate in hallway as tolerated dc plan in am
[2019-12-31] MEDS: Pancrelipase DR 12000 1 CAP PO SCH ×2 (13:15→17:13)
[2019-12-31] MEDS: HumaLOG 300 UNITS/3 ML VIAL SC PRN ×2 (13:16→17:13)
[2019-12-31] MEDS: Rosuvastatin 20 MG TAB PO SCH (21:28)
[2019-12-31] MEDS: metFORMIN 500 MG TAB PO SCH (21:28)
[2019-12-31] MEDS: Acetaminophen 325 MG TAB PO PRN (21:31)
[2020-01-01] MEDS: Lactated Ringer's 1,000 ML IV SCH (05:25)
[2020-01-01] MEDS ORDERED: glipiZIDE 5 MG TAB PO SCH (07:30)
[2020-01-01 07:44] LABS: ALT (SGPT) 31 U/L (8-55); AST (SGOT) 24 U/L (5-34); Albumin 3.7 g/dL (3.5-5.0); Alkaline Phosphatase 62 U/L (40-110); Anion Gap 14 mmol/L (10-20); BUN (Urea Nitrogen) 12 mg/dL (8.9-20.6); Bilirubin, Total 0.5 mg/dL (0.2-1.2); Calc. Creatinine Clearance 140 mL/min (70-130); Calcium 8.6 mg/dL (7.8-10.44); Carbon Dioxide 24 mmol/L (22-29); Chloride 103 mmol/L (98-107); Estimated GFR-MDRD Greater than 90; Globulin 2.8 g/dL (2.4-3.5); Glucose 190 mg/dL (70-105); Protein, Total 6.5 g/dL (6.0-8.3); Sodium 137 mmol/L (136-145)
[2020-01-01] MEDS: Aspirin Chewable 81 MG TAB PO SCH (08:33)
[2020-01-01] MEDS: Enoxaparin Sodium 40 MG/0.4 ML SYRINGE SC SCH (08:33)
[2020-01-01] MEDS: Gabapentin 300 MG CAP PO SCH (08:33)
[2020-01-01] MEDS: Fish Oil 1,000 MG CAP PO SCH (08:33)
[2020-01-01] MEDS: Fenofibrate 48 MG TAB PO SCH (08:33)
[2020-01-01] MEDS: Pancrelipase DR 12000 1 CAP PO SCH (08:33)
[2020-01-01] MEDS: metFORMIN 500 MG TAB PO SCH (08:33)
[2020-01-01] MEDS: Acetaminophen 325 MG TAB PO PRN (08:40)
[2020-01-01 11:25] VITALS: BP 135/92; TEMP 98
--- NOTE | 2020-01-01 15:30 | DIS ---
DATE OF ADMISSION: 12/28/2019 DATE OF DISCHARGE: 01/01/2020 DISCHARGE DISPOSITION: Home. PRIMARY DISCHARGE DIAGNOSES: Acute pancreatitis secondary to hypertriglyceridemia, noncompliance with medication, diabetes mellitus type 2, dyslipidemia, and hypertension. PROCEDURES DONE DURING HOSPITALIZATION: CT of the abdomen and pelvis done on 12/28/2019 showed findings compatible with focal pancreatitis involving head and uncinate process of the pancreas. There is inflammation around the duodenum as well. Chest x-ray showed no acute cardiopulmonary process. Right upper quadrant abdominal ultrasound done showed distended gallbladder. There was suggestion of possible gallbladder polyp. Hepatic steatosis. Hepatomegaly. Common bile duct was 6 mm. H and H of 14 and 44, platelet count 172, MCV is 90. Liver function tests were within normal limits. BUN 12, creatinine 0.7. Total cholesterol 524, triglycerides 1534, HDL 28, lipase was 1623. DISCHARGE MEDICATIONS: 1. Aspirin 81 mg p.o. daily. 2. Gabapentin 300 mg p.o. twice daily. 3. Atorvastatin 80 mg p.o. at bedtime. 4. Tricor 48 mg p.o. daily. 5. Fish oil 1000 mg p.o. daily. 6. Glipizide 5 mg p.o. daily. 7. Glucophage 1000 mg twice daily. 8. Creon 17450 units 1 capsule 3 times daily with meals. 9. Protonix 40 mg daily. ALLERGIES: NO KNOWN DRUG ALLERGIES. DISCHARGE PLAN: The patient to follow up with his primary care physician, Dr. Dietrich in 1 week. BRIEF COURSE DURING HOSPITALIZATION: The patient initially came in with complaints of abdominal pain in the right upper quadrant, radiating to the flanks. His initial workup and clinical exam were consistent with acute pancreatitis. He has had similar episodes about 3 to 4 years back. He was prescribed medications to lower his triglycerides in the past, but the patient has failed to fill his prescriptions. He was initially kept n.p.o., later was placed on full liquids and at the time of discharge, he is on a solid fat-free diet. The patient's diabetes was also uncontrolled. Prior to discharge, his abdominal pain is resolved. He was counseled with regard to medication and dietary compliance. He has otherwise remained hemodynamically stable and will be shortly discharged home. The patient is given ample patient education material regarding hypertriglyceridemia, diabetes mellitus, and dietary manual as well. Please note, I have seen and examined the patient on the day of discharge. Job ID: [id number]
== END 2020-01-01 11:55 | disposition home or self-care (01) | DRG 440 ==
LOC: ERS 17:53 → T4-A 19:07
PROVIDERS: ADMIT Internal Medicine; ATTEND Internal Medicine
DX: K85.80 Other acute pancreatitis without necrosis or infection (principal); E78.1 Pure hyperglyceridemia; E78.5 Hyperlipidemia, unspecified; K86.1 Other chronic pancreatitis; I10 Essential (primary) hypertension; E11.65 Type 2 diabetes mellitus with hyperglycemia; Z91.14 Patient's other noncompliance with medication regimen; Z90.49 Acquired absence of other specified parts of digestive tract; Z79.899 Other long term (current) drug therapy; Z79.82 Long term (current) use of aspirin; Z79.84 Long term (current) use of oral hypoglycemic drugs
CPT/HCPCS: 36415; 36416; 76705; 80048; 80053; 80061; 83690; 85025; 96360; C9113; J1650; J1815; J2270; J2405

== ENCOUNTER 2024-02-23 09:28 | Inpatient (IN) | payer SELFPAY ==
[2024-02-23] MEDS ORDERED: Senokot S 8.6-50 MG TAB PO PRN (10:40)
[2024-02-23] MEDS ORDERED: Ondansetron ODT 4 MG TAB PO PRN (10:40)
[2024-02-23] MEDS ORDERED: Ondansetron PF 4 MG/2 ML Vial IVP PRN (10:40)
[2024-02-23] MEDS ORDERED: Calcium Carbonate 500 MG ChewTAB PO PRN (10:40)
[2024-02-23 10:42] VITALS: BMI 30.5
[2024-02-23] MEDS ORDERED: Dextrose 50% Abboject 50 ML SYRINGE SLOW IVP PRN (10:43)
[2024-02-23] MEDS ORDERED: Glucagon 1 MG/ML KIT IM PRN (10:43)
[2024-02-23] MEDS ORDERED: Dextrose 5% in Water 1,000 ML IV PRN (10:43)
[2024-02-23] MEDS ORDERED: Labetalol HCl 100 MG/20 ML VIAL SLOW IVP PRN (10:47)
[2024-02-23] MEDS: Sodium Chloride 0.9% 1,000 ML IV SCH (11:15)
[2024-02-23] MEDS: Piperacillin/Tazobactam 3.375 GM in Sodium Chloride 0.9% 100 ML IVPB SCH ×2 (11:18→15:27)
[2024-02-23 11:27] LABS: Lactic Acid 2.4 mmol/L (0.5-2.2)
[2024-02-23 11:29] LABS: Anion Gap 15 mmol/L (10-20); BUN (Urea Nitrogen) 16 mg/dL (8.9-20.6); Calc. Creatinine Clearance 128 mL/min (70-130); Calcium 8.6 mg/dL (7.8-10.44); Carbon Dioxide 21 mmol/L (22-29); Chloride 101 mmol/L (98-107); Estimated GFR 106; Glucose 309 mg/dL (70-105); Potassium 4.1 mmol/L (3.5-5.1); Sodium 133 mmol/L (136-145)
[2024-02-23 11:31] LABS: Phosphorus 2.7 mg/dL (2.3-4.7); Triglycerides 1350 mg/dL (Less than 150)
[2024-02-23] MEDS: fentaNYL 50 mcg/mL 1 mL Vial SLOW IVP SCH (11:39)
[2024-02-23] MEDS: HumaLOG 300 UNITS/3 ML VIAL SC PRN (11:40)
[2024-02-23] MEDS: Pantoprazole 40 MG VIAL IVP SCH ×2 (11:40→20:57)
[2024-02-23] MEDS: Folic Acid 1 MG TAB PO SCH (20:53)
[2024-02-23] MEDS: Multivit, Therapeutic 1 TAB PO SCH (20:54)
[2024-02-23] MEDS: Atorvastatin Calcium 40 MG TAB PO SCH (20:54)
[2024-02-23] MEDS: Thiamine 100 MG TAB PO SCH (20:54)
[2024-02-23] MEDS: Heparin 5,000 UNITS/ML VIAL SC SCH (20:56)
[2024-02-23] MEDS: fentaNYL 50 mcg/mL 1 mL Vial SLOW IVP PRN (21:10)
[2024-02-24 04:21] LABS: #Basophils 0.04 10x3/uL (0.0-0.2); %Basophils 0.3 % (0.0-1.0); %Eosinophils 0.8 % (0.0-10.0); %Lymphocytes 16.4 % (21.0-51.0); %Neutrophils 75.1 % (42.0-75.0); Hemoglobin 13.3 g/dL (14.0-18.0); Mean Corpuscular HGB CONC 34.1 g/dL (32.0-36.0); Mean Corpuscular Hemoglobin 29.2 pg (27.0-31.0); Mean Corpuscular Volume 85.5 fL (78.0-98.0); Mean Platelet Volume 10.7 fL (7.4-10.4); Platelet Count 198 10x3/uL (130-400); RBC Distribution Width 13.2 % (11.5-14.5); Red Blood Cell (RBC) Count 4.56 mill/uL (4.70-6.10)
[2024-02-24 04:32] LABS: Lactic Acid 1.1 mmol/L (0.5-2.2)
[2024-02-24 05:05] LABS: ALT (SGPT) 39 U/L (8-55); AST (SGOT) 23 U/L (5-34); Alkaline Phosphatase 52 U/L (40-110); Anion Gap 11 mmol/L (10-20); BUN (Urea Nitrogen) 19 mg/dL (8.9-20.6); Bilirubin, Total 0.8 mg/dL (0.2-1.2); Calc. Creatinine Clearance 149 mL/min (70-130); Calcium 7.7 mg/dL (7.8-10.44); Carbon Dioxide 21 mmol/L (22-29); Chloride 105 mmol/L (98-107); Estimated GFR 111; Glucose 189 mg/dL (70-105); Lipase 107 U/L (8-78); Magnesium 2.1 mg/dL (1.6-2.6); Phosphorus 1.9 mg/dL (2.3-4.7); Potassium 3.5 mmol/L (3.5-5.1); Sodium 133 mmol/L (136-145)
[2024-02-24] MEDS: Fenofibrate 48 MG TAB PO SCH (08:25)
[2024-02-24] MEDS: Pancrelipase DR 12,000 1 CAP PO SCH (08:25)
[2024-02-24] MEDS: Fish Oil 1,000 MG CAP PO SCH (08:26)
[2024-02-24] MEDS: Aspirin Chewable 81 MG TAB PO SCH (08:26)
[2024-02-24] MEDS: Sodium Chloride 0.9% 1,000 ML IV SCH (09:26)
[2024-02-24] MEDS: Insulin Glargine 30 UNITS/0.3 ML VIAL SC SCH (09:54)
[2024-02-24] MEDS: Ketorolac Tromethamine 30 MG (1 mL) VIAL IVP SCH (12:23)
[2024-02-24] MEDS: Gabapentin 300 MG CAP PO SCH (20:39)
[2024-02-25 08:40] LABS: #Basophils 0.04 10x3/uL (0.0-0.2); %Basophils 0.5 % (0.0-1.0); %Eosinophils 2.4 % (0.0-10.0); %Lymphocytes 29.9 % (21.0-51.0); %Monocytes 7.4 % (0.0-10.0); %Neutrophils 59.5 % (42.0-75.0); Hematocrit 39.3 % (42.0-52.0); Hemoglobin 13.2 g/dL (14.0-18.0); Mean Corpuscular HGB CONC 33.6 g/dL (32.0-36.0); Mean Corpuscular Volume 86.4 fL (78.0-98.0); Mean Platelet Volume 10.8 fL (7.4-10.4); Platelet Count 188 10x3/uL (130-400); Red Blood Cell (RBC) Count 4.55 mill/uL (4.70-6.10)
[2024-02-25] MEDS: Insulin Glargine 30 UNITS/0.3 ML VIAL SC SCH (08:53)
[2024-02-25 09:08] LABS: Phosphorus 2.1 mg/dL (2.3-4.7)
[2024-02-25 09:10] LABS: ALT (SGPT) 37 U/L (8-55); AST (SGOT) 30 U/L (5-34); Alkaline Phosphatase 52 U/L (40-110); Anion Gap 14 mmol/L (10-20); BUN (Urea Nitrogen) 10 mg/dL (8.9-20.6); Bilirubin, Total 0.6 mg/dL (0.2-1.2); Calc. Creatinine Clearance 145 mL/min (70-130); Calcium 8.1 mg/dL (7.8-10.44); Carbon Dioxide 19 mmol/L (22-29); Chloride 108 mmol/L (98-107); Estimated GFR 110; Globulin 3.2 g/dL (2.4-3.5); Glucose 160 mg/dL (70-105); Magnesium 1.8 mg/dL (1.6-2.6); Potassium 3.7 mmol/L (3.5-5.1); Protein, Total 6.2 g/dL (6.0-8.3); Sodium 137 mmol/L (136-145)
[2024-02-25 12:26] VITALS: BP 160/82; TEMP 98.5
[2024-02-25] MEDS: Acetaminophen 325 MG TAB PO PRN (12:46)
== END 2024-02-25 15:15 | disposition home or self-care (01) | DRG 440 ==
LOC: T4-A 10:16
PROVIDERS: ADMIT Internal Medicine; ATTEND Family Medicine
DX: K85.90 Acute pancreatitis without necrosis or infection, unspecified (principal); E11.9 Type 2 diabetes mellitus without complications; E78.5 Hyperlipidemia, unspecified; I10 Essential (primary) hypertension; N20.0 Calculus of kidney; Z79.82 Long term (current) use of aspirin; Z79.899 Other long term (current) drug therapy; Z90.49 Acquired absence of other specified parts of digestive tract; Z79.84 Long term (current) use of oral hypoglycemic drugs
CPT/HCPCS: 36415; 36416; 76705; 80053; 83605; 83615; 83690; 83735; 84100; 84478; 85025; C9113; J1644; J1815; J1885; J2543; J3010; J3490; J7050

== ENCOUNTER 2024-04-06 11:57 | Emergency (ER) | payer SELFPAY ==
[~2024-04-06 11:57] MED LIST: Iopamidol-370 76% 500 ML MDV (1 ML CHARGE) ONE
[2024-04-06] MEDS ORDERED: Morphine 4 MG/ML VIAL ONE (12:34)
[2024-04-06] MEDS ORDERED: Ondansetron PF 4 MG/2 ML Vial ONE (12:34)
[2024-04-06] MEDS ORDERED: Famotidine/PF 20 mg/2ml Vial ONE (12:34)
[2024-04-06 12:51] LABS: #Basophils 0.04 10x3/uL (0.0-0.2); %Basophils 0.7 % (0.0-1.0); %Eosinophils 3.4 % (0.0-10.0); %Lymphocytes 41.1 % (21.0-51.0); %Monocytes 7.6 % (0.0-10.0); Hemoglobin 14.1 g/dL (14.0-18.0); Mean Corpuscular HGB CONC 33.6 g/dL (32.0-36.0); Mean Corpuscular Hemoglobin 28.6 pg (27.0-31.0); Mean Corpuscular Volume 85.2 fL (78.0-98.0); Mean Platelet Volume 9.8 fL (7.4-10.4); Platelet Count 224 10x3/uL (130-400); RBC Distribution Width 13.1 % (11.5-14.5); Red Blood Cell (RBC) Count 4.93 mill/uL (4.70-6.10)
[2024-04-06 13:22] LABS: ALT (SGPT) 67 U/L (8-55); AST (SGOT) 46 U/L (5-34); Albumin 3.8 g/dL (3.5-5.0); Alkaline Phosphatase 89 U/L (40-110); Anion Gap 13 mmol/L (10-20); BUN (Urea Nitrogen) 12 mg/dL (8.9-20.6); Bilirubin, Total 0.2 mg/dL (0.2-1.2); Calc. Creatinine Clearance 0 mL/min (70-130); Carbon Dioxide 21 mmol/L (22-29); Chloride 108 mmol/L (98-107); Estimated GFR 106; Globulin 2.9 g/dL (2.4-3.5); Glucose 170 mg/dL (70-105); Lipase 28 U/L (8-78); Potassium 3.9 mmol/L (3.5-5.1); Protein, Total 6.7 g/dL (6.0-8.3); Sodium 138 mmol/L (136-145)
[2024-04-06 15:57] LABS: Bacteria/HPF None Seen HPF (None Seen); Bilirubin Negative (Negative); Blood, Urine Negative (Negative); CAUTI Indications for Culture Dysuria,urgency,freq; Clarity Clear (Clear); Glucose, Urine (Dipstick) 100 mg/dL (Negative); Ketone, Urine Negative (Negative); Leukocyte Negative Leu/uL (Negative); Nitrite Negative (Negative); Protein, Urine (Dipstick) Negative (Neg-Trace); RBC/HPF 0-3 HPF (0-3); Squamous Epithelial None Seen HPF (0-3); Urobilinogen Normal mg/dL (Less than 2); WBC/HPF None Seen HPF (0-3); pH, Urine 5.5 (5.0-9.0)
[2024-04-06 16:03] LABS: Specific Gravity, Urine Greater than 1.060 (1.002-1.036)
[2024-04-06 16:11] LABS: Urine Culture Reflex No No
== END 2024-04-06 16:30 | disposition home or self-care (01) ==
LOC: ERS 11:57
DX: K59.00 Constipation, unspecified (principal); I10 Essential (primary) hypertension; E11.40 Type 2 diabetes mellitus with diabetic neuropathy, unspecified
CPT/HCPCS: 36415; 74177; 80053; 81001; 83690; 85025; 96374; 96375; J2405; Q9967

== ENCOUNTER 2024-06-19 22:26 | Inpatient (IN) | payer SELFPAY ==
[2024-06-20 01:43] VITALS: BMI 29.9
[2024-06-20] MEDS ORDERED: Dextrose 50% Abboject 50 ML SYRINGE SLOW IVP PRN (01:46)
[2024-06-20] MEDS ORDERED: Dextrose 5% in Water 1,000 ML IV PRN (01:46)
[2024-06-20] MEDS ORDERED: Ondansetron ODT 4 MG TAB PO PRN (01:46)
[2024-06-20] MEDS ORDERED: Glucagon 1 MG/ML KIT IM PRN (01:46)
[2024-06-20 02:44] LABS: #Basophils 0.06 10x3/uL (0.0-0.2); %Basophils 0.4 % (0.0-1.0); %Eosinophils 0.7 % (0.0-10.0); %Lymphocytes 13.8 % (21.0-51.0); %Monocytes 5.3 % (0.0-10.0); %Neutrophils 79.4 % (42.0-75.0); Hematocrit 39.2 % (42.0-52.0); Hemoglobin 14.7 g/dL (14.0-18.0); Mean Corpuscular HGB CONC 37.5 g/dL (32.0-36.0); Mean Corpuscular Hemoglobin 31.6 pg (27.0-31.0); Mean Corpuscular Volume 84.3 fL (78.0-98.0); Mean Platelet Volume 10.4 fL (7.4-10.4); Platelet Count 219 10x3/uL (130-400); RBC Distribution Width 13.9 % (11.5-14.5); Red Blood Cell (RBC) Count 4.65 mill/uL (4.70-6.10)
[2024-06-20] MEDS: Morphine 2 MG/ML VIAL SLOW IVP PRN (02:52)
[2024-06-20] MEDS: Insulin Lispro 100 UNIT/ML 10 ML VIAL SC PRN ×2 (02:53→05:11)
[2024-06-20] MEDS: Sodium Bicarbonate 100 MEQ in Sodium Chloride 0.45% 1,000 ML IV SCH (02:54)
[2024-06-20 03:06] LABS: ALT (SGPT) 24 U/L (8-55); AST (SGOT) 26 U/L (5-34); Albumin 3.1 g/dL (3.5-5.0); Alkaline Phosphatase 78 U/L (40-110); Anion Gap 26 mmol/L (10-20); BUN (Urea Nitrogen) 7 mg/dL (8.9-20.6); Bilirubin, Total 0.4 mg/dL (0.2-1.2); Calc. Creatinine Clearance 135 mL/min (70-130); Calcium 8.2 mg/dL (7.8-10.44); Carbon Dioxide Less than 8 mmol/L (22-29); Chloride 98 mmol/L (98-107); Estimated GFR 109; Glucose 292 mg/dL (70-105); Potassium 4.3 mmol/L (3.5-5.1); Protein, Total 8.1 g/dL (6.0-8.3); Sodium 126 mmol/L (136-145)
[2024-06-20] MEDS: traMADol HCl 50 MG TAB PO PRN (05:10)
[2024-06-20] MEDS: Sodium Bicarbonate 150 MEQ in Sodium Chloride 0.45% 1,000 ML IV SCH (05:10)
[2024-06-20 07:35] LABS: #Basophils 0.04 10x3/uL (0.0-0.2); %Basophils 0.3 % (0.0-1.0); %Eosinophils 1.1 % (0.0-10.0); %Monocytes 5.2 % (0.0-10.0); Hematocrit 38.6 % (42.0-52.0); Hemoglobin 14.2 g/dL (14.0-18.0); Mean Corpuscular HGB CONC 36.8 g/dL (32.0-36.0); Mean Corpuscular Hemoglobin 30.9 pg (27.0-31.0); Mean Corpuscular Volume 84.1 fL (78.0-98.0); Mean Platelet Volume 10.5 fL (7.4-10.4); Platelet Count 228 10x3/uL (130-400); RBC Distribution Width 14.1 % (11.5-14.5); Red Blood Cell (RBC) Count 4.59 mill/uL (4.70-6.10)
[2024-06-20] MEDS ORDERED: Pantoprazole DR 40 MG TAB PO SCH (09:00)
[2024-06-20 09:10] LABS: Cholesterol 558 mg/dl (< 200 Desired)
[2024-06-20] MEDS: Pantoprazole 40 MG VIAL IVP SCH (09:16)
[2024-06-20] MEDS: Pancrelipase DR 12,000 1 CAP PO SCH (09:16)
[2024-06-20 11:29] LABS: BUN (Urea Nitrogen) 8 mg/dL (8.9-20.6); HDL Cholesterol 19 mg/dL (>60 Neg Risk)
[2024-06-20 11:30] LABS: Calc. Creatinine Clearance 133 mL/min (70-130); Estimated GFR 109; Glucose 203 mg/dL (70-105); Lipase 51 U/L (8-78); Triglycerides 3061 mg/dL (Less than 150)
[2024-06-20 11:31] LABS: Calcium 8.3 mg/dL (7.8-10.44); Potassium 3.9 mmol/L (3.5-5.1)
[2024-06-20 11:34] LABS: Carbon Dioxide 18 mmol/L (22-29); Chloride 99 mmol/L (98-107); Sodium 132 mmol/L (136-145)
[2024-06-20 11:35] LABS: Anion Gap 19 mmol/L (10-20)
[2024-06-20 11:37] LABS: Cardiac Risk 29.4 (Less than 4.5)
[2024-06-20 11:54] VITALS: BMI 29.9
[2024-06-20 15:01] LABS: ALT (SGPT) 23 U/L (8-55); AST (SGOT) 23 U/L (5-34); Albumin 2.9 g/dL (3.5-5.0); Alkaline Phosphatase 60 U/L (40-110); Anion Gap 17 mmol/L (10-20); BUN (Urea Nitrogen) 8 mg/dL (8.9-20.6); Bilirubin, Total 0.4 mg/dL (0.2-1.2); Calc. Creatinine Clearance 539 mL/min (70-130); Calcium 8.1 mg/dL (7.8-10.44); Carbon Dioxide 21 mmol/L (22-29); Chloride 97 mmol/L (98-107); Globulin 4.5 g/dL (2.4-3.5); Glucose 186 mg/dL (70-105); Potassium 3.8 mmol/L (3.5-5.1); Protein, Total 7.4 g/dL (6.0-8.3); Sodium 131 mmol/L (136-145)
[2024-06-20 18:11] LABS: Glucose 166 mg/dL (70-105)
[2024-06-20 21:48] LABS: Glucose 303 mg/dL (70-105)
[2024-06-20] MEDS: Acetaminophen 325 MG TAB PO PRN (21:51)
[2024-06-21 06:13] LABS: #Basophils 0.03 10x3/uL (0.0-0.2); %Basophils 0.4 % (0.0-1.0); %Neutrophils 73.3 % (42.0-75.0); Hematocrit 39.4 % (42.0-52.0); Hemoglobin 13.7 g/dL (14.0-18.0); Mean Corpuscular HGB CONC 34.8 g/dL (32.0-36.0); Mean Corpuscular Hemoglobin 29.1 pg (27.0-31.0); Mean Corpuscular Volume 83.7 fL (78.0-98.0); Platelet Count 186 10x3/uL (130-400); RBC Distribution Width 13.9 % (11.5-14.5); Red Blood Cell (RBC) Count 4.71 mill/uL (4.70-6.10)
[2024-06-21 08:16] LABS: ALT (SGPT) 19 U/L (8-55); AST (SGOT) 17 U/L (5-34); Albumin 2.6 g/dL (3.5-5.0); Alkaline Phosphatase 55 U/L (40-110); Anion Gap 15 mmol/L (10-20); BUN (Urea Nitrogen) 7 mg/dL (8.9-20.6); Bilirubin, Total 0.5 mg/dL (0.2-1.2); Calc. Creatinine Clearance 140 mL/min (70-130); Calcium 8.3 mg/dL (7.8-10.44); Carbon Dioxide 25 mmol/L (22-29); Chloride 98 mmol/L (98-107); Estimated GFR 110; Globulin 3.5 g/dL (2.4-3.5); Glucose 208 mg/dL (70-105); Potassium 3.7 mmol/L (3.5-5.1); Protein, Total 6.1 g/dL (6.0-8.3); Sodium 134 mmol/L (136-145)
[2024-06-21] MEDS: Fenofibrate 48 MG TAB PO SCH (10:05)
[2024-06-21 12:05] LABS: Glucose 250 mg/dL (70-105)
[2024-06-21] MEDS: FLU (Fluarix Triv) TS24-25(6MOS UP)/PF 45 MCG/0.5 ML Syringe IM ONE (12:54)
[2024-06-21] MEDS ORDERED: Dextrose 50% Abboject 50 ML SYRINGE SLOW IVP PRN (13:35)
[2024-06-21] MEDS ORDERED: Dextrose 5% in Water 1,000 ML IV PRN (13:35)
[2024-06-21] MEDS ORDERED: Glucagon 1 MG/ML KIT IM PRN (13:35)
[2024-06-21 17:00] LABS: Glucose 264 mg/dL (70-105)
[2024-06-21 18:55] LABS: Glucose 259 mg/dL (70-105)
[2024-06-21] MEDS: Insulin Glargine 30 UNITS/0.3 ML VIAL SC SCH (20:46)
[2024-06-22 05:57] LABS: #Basophils 0.04 10x3/uL (0.0-0.2); %Basophils 0.7 % (0.0-1.0); %Lymphocytes 29.5 % (21.0-51.0); %Monocytes 6.9 % (0.0-10.0); %Neutrophils 59.4 % (42.0-75.0); Hematocrit 42.2 % (42.0-52.0); Hemoglobin 14.5 g/dL (14.0-18.0); Mean Corpuscular HGB CONC 34.4 g/dL (32.0-36.0); Mean Corpuscular Hemoglobin 28.7 pg (27.0-31.0); Mean Corpuscular Volume 83.6 fL (78.0-98.0); Mean Platelet Volume 10.1 fL (7.4-10.4); Platelet Count 205 10x3/uL (130-400); RBC Distribution Width 14.2 % (11.5-14.5); Red Blood Cell (RBC) Count 5.05 mill/uL (4.70-6.10)
[2024-06-22 06:05] LABS: ALT (SGPT) 37 U/L (8-55); AST (SGOT) 44 U/L (5-34); Albumin 2.9 g/dL (3.5-5.0); Alkaline Phosphatase 56 U/L (40-110); Anion Gap 12 mmol/L (10-20); BUN (Urea Nitrogen) 8 mg/dL (8.9-20.6); Bilirubin, Total 0.3 mg/dL (0.2-1.2); Calc. Creatinine Clearance 107 mL/min (70-130); Calcium 9.3 mg/dL (7.8-10.44); Carbon Dioxide 27 mmol/L (22-29); Chloride 100 mmol/L (98-107); Estimated GFR 92; Globulin 3.8 g/dL (2.4-3.5); Glucose 223 mg/dL (70-105); Potassium 3.8 mmol/L (3.5-5.1); Protein, Total 6.7 g/dL (6.0-8.3); Sodium 135 mmol/L (136-145)
[2024-06-22 08:08] LABS: Glucose 201 mg/dL (70-105)
[2024-06-22] MEDS: Fenofibrate Nanocrystallized 145 MG TAB PO SCH (08:58)
[2024-06-22] MEDS ORDERED: Fenofibrate 48 MG TAB PO SCH (09:00)
[2024-06-22] MEDS: Lisinopril 20 MG TAB PO SCH (10:18)
[2024-06-22 11:48] LABS: Glucose 278 mg/dL (70-105)
[2024-06-22 17:42] LABS: Glucose 268 mg/dL (70-105)
[2024-06-22 18:02] VITALS: BP 147/98; TEMP 98.5
[2024-06-23] MEDS ORDERED: Lisinopril 20 MG TAB PO SCH (09:00)
== END 2024-06-22 20:30 | disposition home or self-care (01) | DRG 637 ==
LOC: T4-A 06-20 01:23
PROVIDERS: ADMIT Family Medicine; ATTEND Internal Medicine
DX: E11.65 Type 2 diabetes mellitus with hyperglycemia (principal); K85.90 Acute pancreatitis without necrosis or infection, unspecified; E87.20 Acidosis, unspecified; I10 Essential (primary) hypertension; E78.5 Hyperlipidemia, unspecified; Z90.49 Acquired absence of other specified parts of digestive tract; Z82.49 Family history of ischemic heart disease and other diseases of the circulatory system; Z83.3 Family history of diabetes mellitus
CPT/HCPCS: 36415; 36416; 80053; 80061; 82947; 83690; 85025; 90656; J1815; J2272; J2470